=== PATIENT | female | born 1965 | race Two or more races ===

== ENCOUNTER 2020-05-22 17:19 | Inpatient (IN) | payer MEDICAID, OTHER ==
[~2020-05-22] VITALS: Ht 162.6 cm; Wt 66.2 kg
[2020-05-22] MEDS ORDERED: ACETAMINOPHEN 325 MG TAB PO ONE (18:00)
[2020-05-22] MEDS ORDERED: ENOXAPARIN SOD 100 MG/1 ML SYRINGE SC ONE (21:15)
[2020-05-22] MEDS ORDERED: ZINC SULFATE 220mg CAP or TAB PO ONE (21:15)
[2020-05-22] MEDS ORDERED: ASCORBIC ACID 500 MG TAB PO ONE (21:15)
[2020-05-22] MEDS ORDERED: methylPREDNISolone SOD SUCC 125 MG/2 ML VL IV ONE (21:15)
[2020-05-22] MEDS ORDERED: AZITHROMYCIN 500MG/ 250ML 250 ML IV ONE (21:15)
[2020-05-22] MEDS ORDERED: NITROGLYCERIN 0.4 MG SL TAB SL PRN (21:30)
[2020-05-22] MEDS ORDERED: SODIUM CHLORIDE 0.9% 1,000 ML IV SCH (21:30)
[2020-05-22] MEDS ORDERED: ONDANSETRON HCL 4 MG/2 ML VIAL IV PRN (21:30)
[2020-05-22] MEDS ORDERED: ACETAMINOPHEN 325 MG TAB PO PRN (21:30)
[2020-05-22] MEDS ORDERED: MORPHINE SULF INJ 2 MG/ML SYRINGE 1ML IV PRN (21:30)
[2020-05-22] MEDS ORDERED: TEMAZEPAM 15 MG CAP PO PRN (21:30)
[2020-05-22] MEDS ORDERED: cloNIDine HCL 0.1 MG TAB PO PRN (21:45)
[2020-05-22] MEDS: ALBUTEROL SULF HFA 90MCG INH 200DOSE IN SCH (22:00)
[2020-05-22 22:38] LABS: Basophils # (auto) 0 10 ^3/uL (0-0.2); Basophils % (auto) 0.2 % (0.0-2.0); Eosinophils # (auto) 0 10 ^3/uL (0-0.8); Eosinophils % (auto) 0.1 % (0.0-7.0); Hematocrit 36.3 % (36.0-46.0); Hemoglobin 12.2 g/dL (12.2-16.2); Lymphocytes # (auto) 0.5 10 ^3/uL (0.4-5.4); Lymphocytes % (auto) 10.8 % (10.0-50.0); Mean Corpuscular Hemoglobin 31.9 pg (28.0-32.0); Mean Corpuscular Hgb Conc. 33.5 g/dL (32.0-36.0); Monocytes # (auto) 0.3 10 ^3/uL (0-1.3); Monocytes % (auto) 5.6 % (0.0-12.0); Neutrophils % (auto) 83.3 % (37.0-80.0); Platelet Count (auto) 127 10^3/uL (140-450); Red Blood Cells 3.82 10^6/uL (4.0-5.20); Red Cell Distribution Width 13.5 % (11.8-14.3); White Blood Cell 4.8 10^3/uL (4.4-10.8)
[2020-05-22 23:01] LABS: Alanine Aminotransferase 35 U/L (13-56); Albumin 3.6 g/dL (3.4-5.0); Anion Gap 6 (5-15); Blood Urea Nitrogen 6 mg/dL (7-18); Calcium 8.2 mg/dL (8.5-10.1); Carbon Dioxide 26 mmol/L (21-32); Chloride 106 mmol/L (98-107); Glucose 106 mg/dL (74-106); Magnesium 2.4 mg/dL (1.6-2.6); Potassium 3.8 mmol/L (3.5-5.1); Sodium 138 mmol/L (136-145)
[2020-05-22 23:13] LABS: Alkaline Phosphatase 70 U/L (45-117); Aspartate Aminotransferase 41 U/L (15-37); BUN/Creatinine Ratio 11.1; Bilirubin, Total 1.2 mg/dL (0.2-1.0); CRP High Sensitivity 5.25 mg/dL (< 0.3); GFR African American 150 mL/min; GFR Non-African American 124 mL/min; Total Protein 7.3 g/dL (6.4-8.2)
[2020-05-23 02:58] VITALS: BP 173/71
[2020-05-23] MEDS: DOXYCYCLINE 100MG/250ML 250 ML IV SCH ×3 (04:25→23:29)
[2020-05-23] MEDS: FAMOTIDINE 20 MG TAB PO SCH ×3 (04:25→23:29)
[2020-05-23] MEDS: ALBUTEROL SULF HFA 90MCG INH 200DOSE IN SCH ×3 (06:00→20:28)
[2020-05-23 07:14] LABS: Basophils # (auto) 0 10 ^3/uL (0-0.2); Basophils % (auto) 0.1 % (0.0-2.0); Eosinophils # (auto) 0 10 ^3/uL (0-0.8); Hematocrit 36.5 % (36.0-46.0); Hemoglobin 12.4 g/dL (12.2-16.2); Lymphocytes # (auto) 0.3 10 ^3/uL (0.4-5.4); Lymphocytes % (auto) 8.1 % (10.0-50.0); Mean Corpuscular Hemoglobin 32.2 pg (28.0-32.0); Mean Corpuscular Volume 94.8 fL (80.0-100.0); Monocytes # (auto) 0.1 10 ^3/uL (0-1.3); Monocytes % (auto) 2.3 % (0.0-12.0); Neutrophils # (auto) 3.3 10 ^3/uL (1.6-8.6); Neutrophils % (auto) 89.5 % (37.0-80.0); Nucleated Red Blood Cells % 0.1 %; Platelet Count (auto) 125 10^3/uL (140-450); Red Blood Cells 3.85 10^6/uL (4.0-5.20); Red Cell Distribution Width 13.8 % (11.8-14.3); White Blood Cell 3.7 10^3/uL (4.4-10.8)
[2020-05-23 07:50] LABS: Albumin 3.3 g/dL (3.4-5.0); BUN/Creatinine Ratio 8.8; Bilirubin, Total 1.2 mg/dL (0.2-1.0); Calcium 8.1 mg/dL (8.5-10.1); Potassium 3.5 mmol/L (3.5-5.1); Total Protein 6.9 g/dL (6.4-8.2)
[2020-05-23] MEDS ORDERED: ENOXAPARIN SOD 40 MG/0.4 ML SYRINGE SC SCH (10:00)
[2020-05-23] MEDS: ZINC SULFATE 220mg CAP or TAB PO SCH (10:00)
[2020-05-23] MEDS: DexAMETHasone SOD PHOS 10MG/1ML VIAL INJ IV SCH (10:36)
[2020-05-23] MEDS: CHOLECALCIFEROL (VITD3) 2,000 UNIT CAP PO SCH (10:37)
[2020-05-23] MEDS: ENOXAPARIN SOD 40 MG/0.4 ML SYRINGE SC SCH (10:37)
[2020-05-23] MEDS ORDERED: ASCORBIC ACID 500 MG TAB PO ONE (15:00)
[2020-05-23] MEDS ORDERED: PROMETHAZINE W/CODEINE 5 ML ORAL SYRUP PO PRN (15:00)
[2020-05-23] MEDS: BUDESONIDE (INHALATION) 180 MCG IH IN SCH (20:28)
[2020-05-23] MEDS ORDERED: BUDESONIDE (INHALATION) 0.5 MG/2 ML NEB NEB SCH (22:00)
[2020-05-23 22:40] VITALS: BP 143/78
[2020-05-23] MEDS: ASCORBIC ACID 500 MG TAB PO SCH (23:30)
[2020-05-24 05:36] VITALS: BP 119/72
[2020-05-24 05:53] LABS: Basophils # (auto) 0 10 ^3/uL (0-0.2); Basophils % (auto) 0.2 % (0.0-2.0); Eosinophils # (auto) 0 10 ^3/uL (0-0.8); Hematocrit 32.9 % (36.0-46.0); Hemoglobin 11.2 g/dL (12.2-16.2); Lymphocytes # (auto) 0.6 10 ^3/uL (0.4-5.4); Lymphocytes % (auto) 7.9 % (10.0-50.0); Mean Corpuscular Hemoglobin 32.3 pg (28.0-32.0); Mean Corpuscular Hgb Conc. 34.2 g/dL (32.0-36.0); Mean Corpuscular Volume 94.5 fL (80.0-100.0); Monocytes # (auto) 0.7 10 ^3/uL (0-1.3); Monocytes % (auto) 8.9 % (0.0-12.0); Neutrophils # (auto) 6.3 10 ^3/uL (1.6-8.6); Platelet Count (auto) 156 10^3/uL (140-450); Red Blood Cells 3.48 10^6/uL (4.0-5.20); Red Cell Distribution Width 13.6 % (11.8-14.3); White Blood Cell 7.6 10^3/uL (4.4-10.8)
[2020-05-24 06:09] LABS: Calcium 8.2 mg/dL (8.5-10.1); Potassium 3.2 mmol/L (3.5-5.1)
[2020-05-24 06:12] LABS: BUN/Creatinine Ratio 18.2
[2020-05-24] MEDS: ALBUTEROL SULF HFA 90MCG INH 200DOSE IN SCH ×2 (06:50→13:25)
[2020-05-24] MEDS: BUDESONIDE (INHALATION) 180 MCG IH IN SCH (06:51)
[2020-05-24 08:18] LABS: Urine Bacteria NONE SEEN /hpf (None Seen); Urine Blood Negative /uL (Negative); Urine Specific Gravity 1.005 (1.001-1.035); Urine WBC 1 /hpf (0 - 5)
[2020-05-24 08:38] VITALS: BP 116/69
[2020-05-24] MEDS: DexAMETHasone SOD PHOS 10MG/1ML VIAL INJ IV SCH (09:10)
[2020-05-24] MEDS: ZINC SULFATE 220mg CAP or TAB PO SCH (09:10)
[2020-05-24] MEDS: ASCORBIC ACID 500 MG TAB PO SCH (09:11)
[2020-05-24] MEDS: FAMOTIDINE 20 MG TAB PO SCH (09:11)
[2020-05-24] MEDS: ENOXAPARIN SOD 40 MG/0.4 ML SYRINGE SC SCH (09:11)
[2020-05-24] MEDS: CHOLECALCIFEROL (VITD3) 2,000 UNIT CAP PO SCH (10:00)
[2020-05-24 12:15] VITALS: BP 116/64
[2020-05-24 14:25] VITALS: BP 116/64
[2020-05-24] MEDS: DOXYCYCLINE 100MG/250ML 250 ML IV SCH (14:45)
== END 2020-05-24 17:10 | disposition home or self-care (01) | DRG 720 ==
LOC: EDBD 17:20 → ER 17:20 → TELE 21:24 → TELE-CENTR 05-23 23:27
PROVIDERS: ADMIT Nurse Practitioner; ATTEND Internal Medicine
DX: A41.89 Other specified sepsis (principal); U07.1 COVID-19; J12.89 Other viral pneumonia; J96.01 Acute respiratory failure with hypoxia; Z79.82 Long term (current) use of aspirin; Z90.710 Acquired absence of both cervix and uterus; Z79.899 Other long term (current) drug therapy
CPT/HCPCS: 36415; 71045; 80048; 80053; 81001; 82728; 83605; 83735; 84443; 84484; 85025; 85379; 86141; 87040; 87426; 93005; 94640; G0378; J1100; J2405; J3490

== ENCOUNTER 2023-09-16 02:58 | Emergency (ER) | payer MEDICAID ==
[~2023-09-16] VITALS: Ht 162.6 cm; Wt 63.6 kg
[2023-09-16 03:48] VITALS: BP 153/75; PULSE 76; RESP 14; TEMP 97.9; O2SAT 98
[2023-09-16] MEDS ORDERED: ACET500T58 PO (04:03)
== END 2023-09-16 04:03 | disposition home or self-care (01) ==
LOC: ER 02:58
DX: S63.501A Unspecified sprain of right wrist, initial encounter (principal); S00.83XA Contusion of other part of head, initial encounter; W18.09XA Striking against other object with subsequent fall, initial encounter; Y93.89 Activity, other specified; Y92.89 Other specified places as the place of occurrence of the external cause; Y99.8 Other external cause status
CPT/HCPCS: 29125; 70450; 73110